=== PATIENT | female | born 1965 | race American Indian/Alaskan Native ===

== ENCOUNTER 2018-08-30 08:17 | Day surgery (SDC) | payer BC ==
[2018-08-19 08:55] VITALS: BMI 39.9
[2018-08-30 09:13] VITALS: RESP 18
[2018-08-30] MEDS ORDERED: Midazolam 2 MG/2 ML VIAL ONE (10:01)
[2018-08-30] MEDS ORDERED: Propofol 10 mg/ml Inj (20 ML) ONE (10:01)
[2018-08-30] MEDS ORDERED: Sevoflurane - Inhalation Anesthetic Liq (250 ml) ONE (10:14)
[2018-08-30] MEDS ORDERED: Lactated Ringer's 1,000 ML IV SCH (10:45)
[2018-08-30 11:48] VITALS: TEMP 98.5; O2SAT 97
[2018-08-30 12:29] VITALS: BP 136/90; PULSE 80
--- NOTE | 2018-08-31 07:38 | OP ---
PROCEDURE DATE: 08/30/2018 PREOPERATIVE DIAGNOSIS: Dysfunctional uterine bleeding. POSTOPERATIVE DIAGNOSIS: Dysfunctional uterine bleeding. PROCEDURE: Examination under anesthesia, dilatation and curettage. SURGEON: Curtis Davis III, MD ANESTHESIA: General. ANESTHESIOLOGIST: Dr. Santamaria. FLUIDS: IV crystalloids, IV prophylactic antibiotics. DRAINS: None. ESTIMATED BLOOD LOSS: Minimal. CONDITION: Stable. CLINICAL FINDINGS: This is a 53-year-old female with a preoperative diagnosis as described above who after discussion of the risks, benefits, and expected outcomes of all treatment alternatives elected for the surgery described above and signed written informed consent. DESCRIPTION OF PROCEDURE: The patient was brought to the OR, placed under an adequate level of general anesthesia and prepped and draped in the usual sterile fashion for vaginal surgery with the legs placed and properly positioned in [place] [employer] with antiembolic stockings applied. The bladder was drained with a straight catheter. Examination under anesthesia was performed and a weighted speculum placed into the vagina. The cervix was placed on traction with tenaculum. Uterine cavity sounded to 9 cm. The cervical canal was then gently dilated with [place] dilators. Endocervical curettings were taken followed by endometrial curettings. A moderate amount of benign-appearing tissue was obtained. The tenaculum was removed. No bleeding was noted from the tenaculum site. No bleeding was noted from the cervical os. This concluded the surgical procedure. The patient tolerated procedure well and was brought to recovery in stable condition. Curits Davis III, MD MTDD
== END 2018-08-30 13:30 | disposition home or self-care (01) ==
LOC: SDS 08:17
PROVIDERS: ATTEND Obstetrics & Gynecology Gynecology
DX: N92.5 Other specified irregular menstruation (principal); N93.8 Other specified abnormal uterine and vaginal bleeding; I10 Essential (primary) hypertension; Z91.018 Allergy to other foods; E66.01 Morbid (severe) obesity due to excess calories; Z68.39 Body mass index [BMI] 39.0-39.9, adult
CPT/HCPCS: 58120; 84703; 88305; J2001; J2250; J2704; J3010; J7030; J7120 ×2